=== PATIENT | female | born 1955 | race Caucasian/White ===

== ENCOUNTER → 2022-12-17 | Outpatient (CLI) | payer MEDICARE, SELFPAY | END | disposition home or self-care (01) | PROVIDERS: PCP Family Medicine; Referring Provider Family Medicine; Visit Provider Family Medicine | DX: N39.0 Urinary tract infection, site not specified (principal) | CPT/HCPCS: 87086 ==

== ENCOUNTER → 2022-12-18 | Outpatient (CLI) | payer MEDICARE, SELFPAY ==
[2022-12-18 10:22] LABS: Bacteria 0 SEEN /hpf (None Seen); Red Blood Cells-Urine 0 SEEN /hpf (0-5); White Blood Cells 0 SEEN /hpf (0-5)
[2022-12-18 10:50] LABS: Color, Urine Yellow (Yellow); Glucose, Dipstick Normal (Normal); Ketone-Dipstick Negative (Negative); Leukocyte Esterase-Dipstick Negative /ul (Negative); Nitrite-Dipstick Negative (Negative); Occult Blood-Urine 10 /ul (Negative); Protein-Dipstick Negative (Negative); Specific Gravity, Urine 1.015 (1.002-1.030); Urine Bilirubin Dipstick Negative (Negative); Urine Clarity Clear (Clear); Urine Urobilinogen Normal (Normal)
[2022-12-18 11:37] LABS: Mucous, Urine 2+ /hpf (<or=2+); Squamous Epithelial Cells - UA 0-5 SEEN /hpf (5-10)
== END | disposition home or self-care (01) ==
PROVIDERS: PCP Family Medicine; Referring Provider Family Medicine; Visit Provider Family Medicine
DX: R30.0 Dysuria (principal)
CPT/HCPCS: 81001; 87086

== ENCOUNTER → 2023-02-13 | Outpatient (CLI) | payer MEDICARE, SELFPAY ==
[2023-02-13 12:48] LABS: ALB/GLOB Ratio 1.1 RATIO (0.9-2.4); AST(SGOT) 19 U/L (15-37); Alanine Aminotransfer ALT/SGPT 24 U/L (13-56); Albumin, Serum 4.2 g/dL (3.2-5.0); Alkaline Phosphatase 74 U/L (45-117); Anion Gap 4 (5-15); BUN 20 mg/dL (7-18); BUN/Creat Ratio 21.7 RATIO (10-20); Calcium,Total 9.6 mg/dL (8.5-10.1); Chloride 106 mmol/L (98-107); Creatinine, Serum 0.92 mg/dL (0.55-1.02); EST Glomerular Filtration Rate 65 mL/min (>60); Est Glom Filt Rate - Afr Amer 79 mL/min (>60); Globulin 3.7 g/dL (2.2-4.2); Glucose 93 mg/dL (74-106); Protein, Total 7.9 g/dL (6.4-8.2); Sodium Level 139 mmol/L (136-145)
== END | disposition home or self-care (01) ==
LOC: MTLAB 09:23
PROVIDERS: PCP Family Medicine; Referring Provider Nurse Practitioner Family; Visit Provider Nurse Practitioner Family
DX: Z13.1 Encounter for screening for diabetes mellitus (principal)
CPT/HCPCS: 36415; 80053

== ENCOUNTER → 2023-09-29 | Outpatient (CLI) | payer MEDICARE, SELFPAY ==
--- NOTE | 2023-09-29 15:52 | BI_ITS ---
MAMMOGRAPHY - BILATERAL SCREENING REASON FOR EXAM: Female, 68 years old. Routine annual screening examination. PERTINENT HISTORY: Non-contributory. Remote left stereotactic breast biopsy. TECHNIQUE: Digital bilateral breast alisson (3D mammographic acquisition) in the CC and MLO projections. 2-D mediolateral oblique (MLO) and craniocaudad (CC) views of both breasts were obtained. CAD: Full Field Digital Mammography with Computer Added Detection was performed. COMPARISON: Comparison is made with prior study dated September 21, 2015 and September 04, 2010. FINDINGS: Breast Composition: There are scattered areas of fibroglandular density. There are no dominant masses or suspicious calcifications. A tissue clip marker is seen in the upper deep central portion of the left breast. This is unchanged. No other significant abnormalities are identified. There has been no significant change since the prior study. BI/SCRN MAMM (CAD)W/ALISSON BILAT IMPRESSION: Stable bilateral screening mammogram. Yearly follow-up mammogram recommended. (A) ASSESSMENT CATEGORY: BIRADS Category 2: Benign. A letter regarding these results will be sent to the patient by the facility within 30 days. Approximately 10% of breast cancers are not detected by mammography. A normal mammogram should not delay biopsy of a clinically suspicious abnormality. [id number] Electronically Signed: Alexandru Elliott MD at 8:48 EDT ,
--- NOTE | 2023-09-29 15:54 | BD_ITS ---
STUDY: DUAL ENERGY X-RAY ABSORPTIOMETRY / DXA REASON FOR EXAM: Female, 68 years old. M810 TECHNIQUE: Bone Mineral Density (BMD) measurements of lumbar spine and bilateral hips were obtained. COMPARISON: Comparison is made with prior study January 21, 2017. FINDINGS: Lumbar Spine (L1-L4): g/cm2 (0.778) / T-score (-2.4) / Z-score (-0.6) Findings are suggestive of osteopenia with a high fracture risk. Left Femur Total: g/cm2 (0.658) / T-score (-2.3) / Z-score (-1.0) Left Femoral Neck: g/cm2 (0.639) / T-score (-1.9) / Z-score (-0.3) Right Femur Total: g/cm2 (0.744) / T-score (-1.6) / Z-score (-0.3) Right Femoral Neck: g/cm2 (0.657) / T-score (-1.7) / Z-score (-0.1) The T-Scores on the most recent prior examination were: Lumbar Spine (L1-L4): There has been improvement of bone density since the previous examination. Left Femur Total: which represents a worsening of 4.7%. Right Femur Total: which represents an improvement of 3.7%. BD/Dexa Bone Density Study IMPRESSION: The patient is considered osteopenic as outlined below according to World Derrek Organization (WHO) criteria with a high fracture risk. There has been improvement of bone density since the previous examination. Reference Information: The T-score is the number of standard deviations above or below the standard which is normal for young adults at their peak bone mineral density. The World Health Organization (WHO) interprets the T-scores as follows: Above -1 Normal bone density Between -1 and -2.5 Osteopenia Equal to / or below -2.5 Osteoporosis As a practical clinical guideline, osteopenia may be graded as follows: Mild -1 through -1.5 Moderate -1.6 through -2.0 Severe -2.1 through -2.4 The Z-score is the number of standard deviations above or below age-matched controls. A Z-score of less than -1.5 would be considered abnormal. References: 1. NIH Osteoporosis and Related Bone Diseases www osteo.org 2. International Society for Clinical Densitometry www iscd.org 3. National Osteoporosis Foundation www nof.org Electronically Signed: Alexandru Elliott MD at 9:13 EDT ,
== END | disposition home or self-care (01) ==
LOC: OPBD 15:50
PROVIDERS: PCP Family Medicine; Referring Provider Nurse Practitioner Family; Visit Provider Nurse Practitioner Family
DX: Z12.31 Encounter for screening mammogram for malignant neoplasm of breast (principal); M81.0 Age-related osteoporosis without current pathological fracture
CPT/HCPCS: 77063; 77067; 77080

== ENCOUNTER → 2024-07-01 | Outpatient (CLI) | payer MEDICARE, SELFPAY ==
[2024-07-01 10:38] LABS: Absolute Neutrophil Count 2.6 X10^3/uL (2.0-7.7); Basophil# 0.08 X10^3/uL; Basophil% 1.7 % (0-1); Eosinophil# 0.11 X10^3/uL; Eosinophils% 2.3 % (0-5); Hematocrit 42.4 % (37-47); Hemoglobin 13.9 g/dL (12.0-15.0); Mean Corp Hgb Conc 32.8 g/dL (32-36); Mean Corpuscular Hgb 29.8 pg (27.0-32.0); Mean Corpuscular Volume 90.8 fL (81-99); Monocyte# 0.36 X10^3/uL; Monocyte% 7.6 % (0-10); NRBC Flagged by Analyzer 0 % (0-5); Neutrophil # 2.55 X10^3/uL (2.7-7.7); Neutrophil % 54.2 % (47-70); Platelet Count 319 K/mm3 (150-450); RBC Distribution Width CV 12.8 % (11.6-14.6); RBC Distribution Width SD 41.8 fl (35.1-43.9); Red Blood Count 4.67 M/mm3 (4.2-5.4); White Blood Count 4.7 K/mm3 (4.4-11.0)
[2024-07-01 10:46] LABS: Vitamin B12 917 pg/mL (211-911); Vitamin D,25 Hydroxy 60.7 ng/mL
[2024-07-01 10:58] LABS: AST(SGOT) 22 U/L (15-37); Alanine Aminotransfer ALT/SGPT 19 U/L (13-56); Alkaline Phosphatase 80 U/L (45-117); Anion Gap 8 (5-15); BUN 26 mg/dL (7-18); BUN/Creat Ratio 27.5 RATIO (10-20); CRP < 2.90 mg/L (0.0-3.0); Calcium,Total 9.5 mg/dL (8.5-10.1); Chloride 102 mmol/L (98-107); Cholesterol 216 mg/dL (200); Creatinine, Serum 0.94 mg/dL (0.55-1.02); EST Glomerular Filtration Rate 63 mL/min (>60); Est Glom Filt Rate - Afr Amer 76 mL/min (>60); Globulin 4.1 g/dL (2.2-4.2); Glucose 85 mg/dL (74-106); High Density Lipoprotein 57 mg/dL; Potassium 4.2 mmol/L (3.5-5.1); Protein, Total 8.1 g/dL (6.4-8.2); Sodium Level 135 mmol/L (136-145); Triglycerides 73 mg/dL; Very Low Density Lipoprotein 15 mg/dL (5-40)
[2024-07-01 16:02] LABS: Syphilis Antibodies Non-reactive
[2024-07-01 16:04] LABS: Erythrocyte Sedimentation Rate 10 mm/hr (0-30)
[2024-07-04 14:09] LABS: ANTINUCLEAR ANTIBODIES DIRECT Negative (Negative)
[2024-07-04 15:08] LABS: Absolute CD4 Helper 674 /uL (359-1519); Basophils (Absolute) 0.1 x10E3/uL (0.0-0.2); CD4/CD8 Ratio 1.33 (0.92-3.72); Complement C3 140 mg/dL (82-167); Eosinophils 2 % (Not Estab.); Eosinophils (Absolute) 0.1 x10E3/uL (0.0-0.4); Hematocrit 43.4 % (34.0-46.6); Hemoglobin 14.4 g/dL (11.1-15.9); Immature Granulocytes 0 % (Not Estab.); Immature Granulocytes Absolute 0 x10E3/uL (0.0-0.1); Lyme Scn Total Ab w/Rflx Negative (Negative); Lymphs 32 % (Not Estab.); Lymphs (Absolute) 1.5 x10E3/uL (0.7-3.1); MCH 30.6 pg (26.6-33.0); MCHC 33.2 g/dL (31.5-35.7); MCV 92 fL (79-97); Monocytes 8 % (Not Estab.); Monocytes (Absolute) 0.4 x10E3/uL (0.1-0.9); Neutrophils 56 % (Not Estab.); Neutrophils (Absolute) 2.6 x10E3/uL (1.4-7.0); PROEL- A/G Ratio 1.2 (0.7-1.7); PROEL- Alpha-1 Globulin 0.2 g/dL (0.0-0.4); PROEL- Alpha-2 Globulin 0.6 g/dL (0.4-1.0); PROEL- Beta Globulin 1.1 g/dL (0.7-1.3); PROEL- Gamma Globulin 1.3 g/dL (0.4-1.8); PROEL- Globulin, Total 3.3 g/dL (2.2-3.9); PROEL- TOTAL PROTEIN 7.3 g/dL (6.0-8.5); PROEL-M-Spike Not Observed g/dL (Not Observed); Percent % CD4 Pos. Lymph. 44.9 % (30.8-58.5); Percent % CD8 Pos. Lymph. 33.7 % (12.0-35.5); Platelets 334 x10E3/uL (150-450); RBC Count 4.71 x10E6/uL (3.77-5.28); RDW 12.7 % (11.7-15.4); WBC Count 4.7 x10E3/uL (3.4-10.8)
== END | disposition home or self-care (01) ==
LOC: MTLAB 08:13
PROVIDERS: PCP Family Medicine; Referring Provider Family Medicine; Visit Provider Family Medicine
DX: Z01.84 Encounter for antibody response examination (principal); K12.30 Oral mucositis (ulcerative), unspecified; M81.0 Age-related osteoporosis without current pathological fracture; Z13.220 Encounter for screening for lipoid disorders
CPT/HCPCS: 36415; 80053; 80061; 82306; 82607; 82746; 84165; 85025; 85652; 86038; 86140; 86160; 86360; 86618; 86780

== ENCOUNTER → 2024-07-22 | Outpatient (CLI) | payer MEDICARE, SELFPAY | END | disposition home or self-care (01) | LOC: MTLAB 08:08 | PROVIDERS: PCP Family Medicine; Referring Provider Family Medicine; Visit Provider Family Medicine | DX: R21 Rash and other nonspecific skin eruption (principal) ==

== ENCOUNTER 2024-08-04 09:39 | Outpatient (RCR) | payer MEDICARE, SELFPAY ==
--- NOTE | 2024-08-04 12:04 | HP.PTEVAL ---
Patient's Visit Information Visit Information Visit Information: CATHY SAENZ is a 69 year old F referred to Physical Therapy by Dr. Elmo Solis MD with a diagnosis of Osteoporosis. Date of Evaluation: 08/04/24 Physical Therapist: Dylan Bates DPT Visit Plan Frequency: 1x/Week Duration: 1 Week Plan: Pt educated on HEP for end range mobility and core stability to allow for safe practice into back bending. She is to work on these activities. I did educate her on the potential risks with her osteoporosis, pt. desires to continue. Subjective Subjective: Pt is here for the initial evaluation with a dx of osteoporosis. Pt reports no pain and was dx with osteoporosis in 2011 when she came in for a wrist fracture. Pt reports no limitations with ADLs or daily activities. Pt reports exercising 2x/day focusing more on flexibility. Pt reports stiffness in shoulders and wrists when performing a backbend and feels tightness when trying to do so. Pt is more concerned with shoulder tightness and mobility. Objective Objective: Posture: normal Palpation: normal Neuro: DTR normal; sensation normal ROM: spine normal; shoulders normal; wrists normal MMT: UE normal bilaterally; all LE normal except hip ext 4/5 bilaterally; lower abdominals fair plus; upper abdominals 5/5 GAIT: normal without issues. Balance/Special Test Scores Oswestry Low Back Score: 0 Goals Goal 1:: Pt will be independent with HEP to increase core strength and end range mobility (goal met today). Goal Time Frame: 1 Week Rehabilitation Potential Physical Therapy Diagnosis: Pt. has signs and symptoms consistent with osteoporosis. Pt. has recently started working on being able to complete a back bend with her grand daughter. Pt. has some end range mobility issues and would like to get better with in these ranges. Rehabilitation Potential: Excellent Anticipated Interventions Patient/Client Instruction: Educate patient on: Benefits of Fitness Program For the Purpose of:: To foster healthy habits and To improve self management Therapeutic Exercise to Include: Strength training, Passive ROM and Active ROM For the Purpose of:: To increase ROM, To improve muscle performance and motor function and To increase flexibility/ROM Text: Thank you for the opportunity to evaluate your patient. For Medicare and Medicare HMO plans, please review the plan of care and approve it. It will need to be FAXED BACK to us at [phone] for Medicare purposes. For Medicare only, by signing this I certify the plan of care. Please let me know if there are questions or concerns regarding this plan of care. Physician Signature: Date:
== END 2024-08-04 19:00 | disposition home or self-care (01) ==
LOC: PT 09:39
PROVIDERS: PCP Family Medicine; Referring Provider Family Medicine; Visit Provider Family Medicine
DX: M81.0 Age-related osteoporosis without current pathological fracture (principal)
CPT/HCPCS: 97110; 97161

== ENCOUNTER → 2025-07-26 | Outpatient (CLI) | payer MEDICARE, SELFPAY ==
--- OUTSIDE RECORDS SUMMARY | 2025-07-26 07:18 | XMS RPT_ITS | CCD ---
Author Organization [facility] Care Team Providers Care Vp Training Name Role Phone Elmo Solis Primary Care Unavailable Elmo Solis Attending Unavailable Elmo Solis Referring Unavailable Elmo Solis Primary Care Unavailable Elmo Solis Attending Unavailable Elmo Solis Referring Unavailable Elmo Solis Attending Unavailable Elmo Solis Referring Unavailable Elmo Solis Primary Care Unavailable Medications Current Medications Medication Drug Class(es) Dates Sig (Normalized) Sig (Original) acetaminophen 325 mg / HYDROcodone bitartrate 5 mg oral tablet (3 sources) Opioid Agonist Start: 01-11-2017 take 1 tablet by mouth every four hours as needed Hydrocodone-Aceta minophen Active 1 - 2 TABLET PO EVERY 4 HOURS NEEDED January 11, 2017 1:00am Problems Problem Classification Problem Date Documented Da te Episodic/Chronic Diseases of mouth; excluding dental (1 source) Oral mucositis (ulcerative), unspecified; Translations: [Oral mucositis (ulcerative), unspecified] Onset: 08-07-2024 Episodic Other skin disorders (1 source) Rash and other nonspecific skin eruption; Translations: [Rash and other nonspecific skin eruption] Onset: 08-09-2024 Episodic Results Test Name Value Interpretation Reference Range Facility Inital Evaluation (1) - PTon 08-04-2024 Inital Evaluation (1) - PT [facility] [address] [place] [address] / REHABILITATION SERVICES INITIAL EVALUATION MR#: [id number] Acct: [id number] Name: CATHY SAENZ Rep #: [id number] : 1955 69 From: Dylan Bates DPT Referring Dr.: Dr. Elmo Solis MD Status: REG R CR Insurance: [employer] [facility] ADV LIFE1 SELF PAY INSURANCE Patient's Visit Information Visit Information Visit Information: CATHY SAENZ is a 69 year old F referred to Physical Therapy by Dr. Elmo Solis MD with a diagnosis of Osteoporosis. Date of Evaluation: 08/04/24 Physical Therapist: Dylan Bates DPT Visit Plan Frequency: 1x/Week Duration: 1 Week Plan: Pt educated on HEP for end range mobility and core stability to allow for safe practice into back bending. She is to work on these activities. I did educate her on the potential risks with her osteoporosis, pt. desires to continue. Subjective Subjective: Pt is here for the initial evaluation with a dx of osteoporosis. Pt reports no pain and was dx with osteoporosis in 2011 when she came in for a wrist fracture. Pt reports no limitations wi th ADLs or daily activities. Pt reports exercising 2x/day focusing more on flexibility. Pt reports stiffness in shoulders and wrists when performing a backbend and feels tightness when trying to do so. Pt is more concerned with shoulder tightness and mobility. Objective Objective: Posture: normal Palpation: normal Neuro: DTR normal; sensation normal ROM: spine normal; shoulders normal; wrists normal MMT: UE normal bilaterally; all LE normal except hip ext 4/5 bilaterally; lower abdominals fair plus; upper abdominals 5/5 GAIT: normal without issues. Balance/Special Test Scores Oswestry Low Back Score: 0 Goals Goal 1:: Pt will be independent with HEP to increase core strength and end range mobility (goal met today). Goal Time Frame: 1 Week Rehabilitation Potential Physical Therapy Diagnosis: Pt. has signs and symptoms consistent with osteoporosis. Pt. has recently started working on being able to complete a back bend with her grand daughter. Pt. has some end range mobility issues and would like to get better with in these ranges. Rehabilitation Potential: Excellent Anticipated Interventions Patient/Client Instruction: Educate patient on: Benefits of Fitness Program For the Purpose of:: To foster healthy habits and To improve self management Therapeutic Exercise to Include: Strength training, Passive ROM and Active ROM For the Purpose of:: To increase ROM, To improve muscle performance and motor function and To increase flexibility/ROM Text: Thank you for the opportunity to evaluate your patient. For Medicare and Medicare HMO plans, please review the plan of care and approve it. It will need to be FAXED BACK to us at [phone] for Medicare purposes. For Medicare only, by signing this I certify the plan of care. Please let me know if there are questions or concerns regarding this plan of care. Physician Signature: __Date: 08/04/24 1204 CC: Dr. Elmo Solis MD CLS Signed [facility] [id number] 07-22-2024 [facility] Comment on above: Result Comment: DIAG NOSIS CODE DIDNT WORK FOR TEST, PT DIDNT WANT TO PAY TO GET DONE Performed By: #### L 5500.0550 #### [facility] [address] [place], [address] CHOCOLATE [facility] Comment on above: Result Comment: DIAG NOSIS CODE DIDNT WORK FOR TEST, PT DIDNT WANT TO PAY TO GET DONE Performed By: #### L 5500.0550 #### [facility] [address] [place], [address] CODFISH [facility] Comment on above: Result Comment: DIAG NOSIS CODE DIDNT WORK FOR TEST, PT DIDNT WANT TO PAY TO GET DONE Performed By: #### L 5500.0550 #### [facility] [address] [place], [address] CORN [facility] Comment on above: Result Comment: DIAG NOSIS CODE DIDNT WORK FOR TEST, PT DIDNT WANT TO PAY TO GET DONE Performed By: #### L 5500.0550 #### [facility] [address] [place], [address] EGG, WHOLE [facility] Comment on above: Result Comment: DIAG NOSIS CODE DIDNT WORK FOR TEST, PT DIDNT WANT TO PAY TO GET DONE Performed By: #### L 5500.0550 #### [facility] [address] [place], [address] MILK (COW) [facility] Comment on above: Result Comment: DIAG NOSIS CODE DIDNT WORK FOR TEST, PT DIDNT WANT TO PAY TO GET DONE Performed By: #### L 5500.0550 #### [facility] [address] [place], [address] MUSSELS [facility] Comment on above: Result Comment: DIAG NOSIS CODE DIDNT WORK FOR TEST, PT DIDNT WANT TO PAY TO GET DONE Performed By: #### L 5500.0550 #### [facility] [address] [place], [address] PEANUT [facility] Comment on above: Result Comment: DIAG NOSIS CODE DIDNT WORK FOR TEST, PT DIDNT WANT TO PAY TO GET DONE Performed By: #### L 5500.0550 #### [facility] [address] [place], [address] PORK [facility] Comment on above: Result Comment: DIAG NOSIS CODE DIDNT WORK FOR TEST, PT DIDNT WANT TO PAY TO GET DONE Performed By: #### L 5500.0550 #### [facility] [address] [place], [address] SALMON [facility] Comment on above: Result Comment: DIAG NOSIS CODE DIDNT WORK FOR TEST, PT DIDNT WANT TO PAY TO GET DONE Performed By: #### L 5500.0550 #### [facility] [address] [place], [address] [facility] Comment on above: Result Comment: DIAG NOSIS CODE DIDNT WORK FOR TEST, PT DIDNT WANT TO PAY TO GET DONE Performed By: #### L 5500.0550 #### [facility] [address] [place], [address] SOYBEAN [facility] Comment on above: Result Comment: DIAG NOSIS CODE DIDNT WORK FOR TEST, PT DIDNT WANT TO PAY TO GET DONE Performed By: #### L 5500.0550 #### [facility] [address] [place], [address] TUNA [facility] Comment on above: Result Comment: DIAG NOSIS CODE DIDNT WORK FOR TEST, PT DIDNT WANT TO PAY TO GET DONE Performed By: #### L 5500.0550 #### [facility] [address] [place], [address] WHEAT [facility] Comment on above: Result Comment: DIAG NOSIS CODE DIDNT WORK FOR TEST, PT DIDNT WANT TO PAY TO GET DONE Performed By: #### L 5500.0550 #### [facility] [address] [place], [address] ANTINUCLEAR ANTIBODIES DIREC Ton 07-04-2024 TINY,DIRECT Negative Normal Negative [facility] Comment on above: Order Comment: Order Date: 06/29/24 Order Info: 0270-1 - TINY Comments: by IFA titer Result Comment: Perf ormed at: [facility] [id number] Cushion Sewer: Jacob Jonas PhD, Phone: [phone] Performed By: #### L 3100.5475, L3100.3450, L3100.5700, L3100.5800, L3890.0100, L100.0100, L503.0105, L501.6710, L506.0250 #### [facility] [address] [place], [address] CD4:CD8 Ratioon 07-04-2024 % CD4 POS.LYMPH 44.9 Normal 30.8-58.5 [facility] Comment on above: Order Comment: Order Date: 06/29/24 Order Info: 0060-1 - PROEL Order Info: 4485-9 - COMPC3 Order Info: 4498-2 - COMPC4 Order Info: 35050-8 - CD4CD8 Order Date: 06/30/24 Order Info: 9586-9 - LYMS Performed By: #### L 3100.5475, L3100.3450, L3100.5700, L3100.5800, L3890.0100, L100.0100, L503.0105, L501.6710, L506.0250 #### [facility] [address] [place], [address] % CD8 POS.LYMPH 33.7 Normal 12.0-35.5 [facility] Comment on above: Order Comment: Order Date: 06/29/24 Order Info: 0060-1 - PROEL Order Info: 4485-9 - COMPC3 Order Info: 4498-2 - COMPC4 Order Info: 79760-5 - CD4CD8 Order Date: 06/30/24 Order Info: 9586-9 - LYMS Performed By: #### L 3100.5475, L3100.3450, L3100.5700, L3100.5800, L3890.0100, L100.0100, L503.0105, L501.6710, L506.0250 #### [facility] [address] [place], [address] ABSOLUTE CD4 674 /uL Normal 359-1519 [facility] Comment on above: Order Comment: Order Date: 06/29/24 Order Info: 0060-1 - PROEL Order Info: 4485-9 - COMPC3 Order Info: 4498-2 - COMPC4 Order Info: 09642-7 - CD4CD8 Order Date: 06/30/24 Order Info: 9586-9 - LYMS Performed By: #### L 3100.5475, L3100.3450, L3100.5700, L3100.5800, L3890.0100, L100.0100, L503.0105, L501.6710, L506.0250 #### [facility] [address] [place], [place], [address] ABSOLUTE CD8 506 /uL Normal 109-897 [facility] Comment on above: Order Comment: Order Date: 06/29/24 Order Info: 0- - PROEL Order Info: 4485-9 - COMPC3 Order Info: 4498-2 - COMPC4 Order Info: 72208-0 - CD4CD8 Order Date: 06/30/24 Order Info: 9586-9 - LYMS Performed By: #### L 3100.5475, L3100.3450, L3100.5700, L3100.5800, L3890.0100, L100.0100, L503.0105, L501.6710, L506.0250 #### [facility] [address] [place], [place], [address] Basophils 2 Normal Not Estab. [facility] Comment on above: Order Comment: Order Date: 06/29/24 Order Info: 59-11 - PROEL Order Info: 44804-07 - COMPC3 Order Info: 4498- - COMPC4 Order Info: 43546-4 - CD4CD8 Order Date: 06/30/24 Order Info: 9586-9 - LYMS Performed By: #### L 3100.5475, L3100.3450, L3100.5700, L3100.5800, L3890.0100, L100.0100, L503.0105, L501.6710, L506.0250 #### [facility] [address] [place], [place], [address] Basos Absolute 0.1 x10E3/uL Normal 0.0-0.2 [facility] Comment on above: Order Comment: Order Date: 06/29/24 Order Info: 0 - PROEL Order Info: 448- - COMPC3 Order Info: 4498- - COMPC4 Order Info: 09485-4 - CD4CD8 Order Date: 06/30/24 Order Info: 9586-9 - LYMS Performed By: #### L 3100.5475, L3100.3450, L3100.5700, L3100.5800, L3890.0100, L100.0100, L503.0105, L501.6710, L506.0250 #### [facility] [address] [place], [address] CD4/CD8 RATIO 1.33 Normal 0.92-3.72 [facility] Comment on above: Order Comment: Order Date: 06/29/24 Order Info: 59- - PROEL Order Info: 4489 - COMPC3 Order Info: 4498- - COMPC4 Order Info: 99951-1 - CD4CD8 Order Date: 06/30/24 Order Info: 9586-9 - LYMS Performed By: #### L 3100.5475, L3100.3450, L3100.5700, L3100.5800, L3890.0100, L100.0100, L503.0105, L501.6710, L506.0250 #### [facility] [address] [place], [address] Eos Absolute 0.1 x10E3/uL Normal 0.0-0.4 [facility] Comment on above: Order Comment: Order Date: 06/29/24 Order Info: 59-11 - PROEL Order Info: 4489 - COMPC3 Order Info: 44907-01 - COMPC4 Order Info: 43438-1 - CD4CD8 Order Date: 06/30/24 Order Info: 9586-9 - LYMS Performed By: #### L 3100.5475, L3100.3450, L3100.5700, L3100.5800, L3890.0100, L100.0100, L503.0105, L501.6710, L506.0250 #### [facility] [address] [place], [address] Eosinophils 2 Normal Not Estab. [facility] Comment on above: Order Comment: Order Date: 06/29/24 Order Info: 59-11 - PROEL Order Info: 4485-9 - COMPC3 Order Info: 4498- - COMPC4 Order Info: 64613-9 - CD4CD8 Order Date: 06/30/24 Order Info: 9586-9 - LYMS Performed By: #### L 3100.5475, L3100.3450, L3100.5700, L3100.5800, L3890.0100, L100.0100, L503.0105, L501.6710, L506.0250 #### [facility] [address] [place], [place], [address] Erythrocyte distribution width (RBC) [Ratio] 12.7 % Normal 11.7-15.4 [facility] Comment on above: Order Comment: Order Date: 06/29/24 Order Info: 0060-1 - PROEL Order Info: 4485-9 - COMPC3 Order Info: 4498-2 - COMPC4 Order Info: 59568-4 - CD4CD8 Order Date: 06/30/24 Order Info: 9586-9 - LYMS Performed By: #### L 3100.5475, L3100.3450, L3100.5700, L3100.5800, L3890.0100, L100.0100, L503.0105, L501.6710, L506.0250 #### [facility] [address] [place], [place], [address] Hematocrit (Bld) [Volume fraction] 43.4 % Normal 34.0-46.6 [facility] Comment on above: Order Comment: Order Date: 06/29/24 Order Info: 0060-1 - PROEL Order Info: 4485-9 - COMPC3 Order Info: 4498-2 - COMPC4 Order Info: 28162-4 - CD4CD8 Order Date: 06/30/24 Order Info: 9586-9 - LYMS Performed By: #### L 3100.5475, L3100.3450, L3100.5700, L3100.5800, L3890.0100, L100.0100, L503.0105, L501.6710, L506.0250 #### [facility] [address] [place], [place], [address] Heme Comment TNP Normal . [facility] Comment on above: Order Comment: Order Date: 06/29/24 Order Info: 59- - PROEL Order Info: 4485-9 - COMPC3 Order Info: 4498- - COMPC4 Order Info: 74673-1 - CD4CD8 Order Date: 06/30/24 Order Info: 9586-9 - LYMS Performed By: #### L 3100.5475, L3100.3450, L3100.5700, L3100.5800, L3890.0100, L100.0100, L503.0105, L501.6710, L506.0250 #### [facility] [address] [place], [place], [address] Hemoglobin (Bld) [Mass/Vol] 14.4 g/dL Normal 11.1-15.9 [facility] Comment on above: Order Comment: Order Date: 06/29/24 Order Info: 59-11 - PROEL Order Info: 4489 - COMPC3 Order Info: 4498 - COMPC4 Order Info: 93602-3 - CD4CD8 Order Date: 06/30/24 Order Info: 9586-9 - LYMS Performed By: #### L 3100.5475, L3100.3450, L3100.5700, L3100.5800, L3890.0100, L100.0100, L503.0105, L501.6710, L506.0250 #### [facility] [address] [place], [place], [address] Imm Grans Abs 0 x10E3/uL Normal 0.0-0.1 [facility] Comment on above: Order Comment: Order Date: 06/29/24 Order Info: 59-11 - PROEL Order Info: 4485-9 - COMPC3 Order Info: 4498- - COMPC4 Order Info: 18588-7 - CD4CD8 Order Date: 06/30/24 Order Info: 9586-9 - LYMS Performed By: #### L 3100.5475, L3100.3450, L3100.5700, L3100.5800, L3890.0100, L100.0100, L503.0105, L501.6710, L506.0250 #### [facility] [address] [place], [place], [address] [phone] Immature Cells TNP Normal . [facility] Comment on above: Order Comment: Order Date: 06/29/24 Order Info: 0- - PROEL Order Info: 4489 - COMPC3 Order Info: 4498 - COMPC4 Order Info: 23420-4 - CD4CD8 Order Date: 06/30/24 Order Info: 9586-9 - LYMS Performed By: #### L 3100.5475, L3100.3450, L3100.5700, L3100.5800, L3890.0100, L100.0100, L503.0105, L501.6710, L506.0250 #### [facility] [address] [place], [place], [phone] Immature Grans 0 Normal Not Estab. [facility] Comment on above: Order Comment: Order Date: 06/29/24 Order Info: 59-11 - PROEL Order Info: 4489 - COMPC3 Order Info: 4498- - COMPC4 Order Info: 52589-0 - CD4CD8 Order Date: 06/30/24 Order Info: 9586-9 - LYMS Performed By: #### L 3100.5475, L3100.3450, L3100.5700, L3100.5800, L3890.0100, L100.0100, L503.0105, L501.6710, L506.0250 #### [facility] [address] [place], [place], [address] Lymphocytes 32 Normal Not Estab. [facility] Comment on above: Order Comment: Order Date: 06/29/24 Order Info: 0-1 - PROEL Order Info: 4485-9 - COMPC3 Order Info: 4498-2 - COMPC4 Order Info: 30937-9 - CD4CD8 Order Date: 06/30/24 Order Info: 9586-9 - LYMS Performed By: #### L 3100.5475, L3100.3450, L3100.5700, L3100.5800, L3890.0100, L100.0100, L503.0105, L501.6710, L506.0250 #### [facility] [address] [place], [place], [address] (657) Lymphocytes (Bld) [#/Vol] 1.5 10*3/uL Normal 0.7-3.1 [facility] Comment on above: Order Comment: Order Date: 06/29/24 Order Info: 0060-1 - PROEL Order Info: 4485-9 - COMPC3 Order Info: 4498-2 - COMPC4 Order Info: 94496-5 - CD4CD8 Order Date: 06/30/24 Order Info: 9586-9 - LYMS Performed By: #### L 3100.5475, L3100.3450, L3100.5700, L3100.5800, L3890.0100, L100.0100, L503.0105, L501.6710, L506.0250 #### [facility] [address] [place], [place], [address] MCH (RBC) [Entitic mass] 30.6 pg Normal 26.6-33.0 [facility] Comment on above: Order Comment: Order Date: 06/29/24 Order Info: 0060- - PROEL Order Info: 4485-9 - COMPC3 Order Info: 4498-2 - COMPC4 Order Info: 11725-7 - CD4CD8 Order Date: 06/30/24 Order Info: 9586-9 - LYMS Performed By: #### L 3100.5475, L3100.3450, L3100.5700, L3100.5800, L3890.0100, L100.0100, L503.0105, L501.6710, L506.0250 #### [facility] [address] [place], [place], [address] MCHC (RBC) [Mass/Vol] 33.2 g/dL Normal 31.5-35.7 [facility] Comment on above: Order Comment: Order Date: 06/29/24 Order Info: 0- - PROEL Order Info: 4485-9 - COMPC3 Order Info: 4498-2 - COMPC4 Order Info: 70457-9 - CD4CD8 Order Date: 06/30/24 Order Info: 9586-9 - LYMS Performed By: #### L 3100.5475, L3100.3450, L3100.5700, L3100.5800, L3890.0100, L100.0100, L503.0105, L501.6710, L506.0250 #### [facility] [address] [place], [place], [address] MCV (RBC) [Entitic vol] 92 fL Normal 79-97 [facility] Comment on above: Order Comment: Order Date: 06/29/24 Order Info: 59-11 - PROEL Order Info: 4489 - COMPC3 Order Info: 4498- - COMPC4 Order Info: 94766-3 - CD4CD8 Order Date: 06/30/24 Order Info: 9586-9 - LYMS Performed By: #### L 3100.5475, L3100.3450, L3100.5700, L3100.5800, L3890.0100, L100.0100, L503.0105, L501.6710, L506.0250 #### [facility] [address] [place], [place], [address] Monocytes 8 Normal Not Estab. [facility] Comment on above: Order Comment: Order Date: 06/29/24 Order Info: 59- - PROEL Order Info: 4485-9 - COMPC3 Order Info: 4498-2 - COMPC4 Order Info: 45380-6 - CD4CD8 Order Date: 06/30/24 Order Info: 9586-9 - LYMS Performed By: #### L 3100.5475, L3100.3450, L3100.5700, L3100.5800, L3890.0100, L100.0100, L503.0105, L501.6710, L506.0250 #### [facility] [address] [place], [place], [address] Monos Absolute 0.4 x10E3/uL Normal 0.1-0.9 [facility] Comment on above: Order Comment: Order Date: 06/29/24 Order Info: 59- - PROEL Order Info: 4485-9 - COMPC3 Order Info: 4498- - COMPC4 Order Info: 01620-2 - CD4CD8 Order Date: 06/30/24 Order Info: 9586-9 - LYMS Performed By: #### L 3100.5475, L3100.3450, L3100.5700, L3100.5800, L3890.0100, L100.0100, L503.0105, L501.6710, L506.0250 #### [facility] [address] [place], [place], [address] Neutro Absolute 2.6 x10E3/uL Normal 1.4-7.0 [facility] Comment on above: Order Comment: Order Date: 06/29/24 Order Info: 59-11 - PROEL Order Info: 4485-9 - COMPC3 Order Info: 449- - COMPC4 Order Info: 45118-9 - CD4CD8 Order Date: 06/30/24 Order Info: 9586-9 - LYMS Performed By: #### L 3100.5475, L3100.3450, L3100.5700, L3100.5800, L3890.0100, L100.0100, L503.0105, L501.6710, L506.0250 #### [facility] [address] [place], [place], [address] Neutrophils 56 Normal Not Estab. [facility] Comment on above: Order Comment: Order Date: 06/29/24 Order Info: 1 - PROEL Order Info: 4485-9 - COMPC3 Order Info: 4498-2 - COMPC4 Order Info: 48081-5 - CD4CD8 Order Date: 06/30/24 Order Info: 9586-9 - LYMS Performed By: #### L 3100.5475, L3100.3450, L3100.5700, L3100.5800, L3890.0100, L100.0100, L503.0105, L501.6710, L506.0250 #### [facility] [address] [place], [address] Platelets (Bld) [#/Vol] 334 10*3/uL Normal 150-450 [facility] Comment on above: Order Comment: Order Date: 06/29/24 Order Info: 0060-1 - PROEL Order Info: 4485-9 - COMPC3 Order Info: 4498-2 - COMPC4 Order Info: 11503-2 - CD4CD8 Order Date: 06/30/24 Order Info: 9586-9 - LYMS Performed By: #### L 3100.5475, L3100.3450, L3100.5700, L3100.5800, L3890.0100, L100.0100, L503.0105, L501.6710, L506.0250 #### [facility] [address] [place], [address] RBC (Bld) [#/Vol] 4.71 10*6/uL Normal 3.77-5.28 [facility] Comment on above: Order Comment: Order Date: 06/29/24 Order Info: 0060-1 - PROEL Order Info: 4485-9 - COMPC3 Order Info: 4498-2 - COMPC4 Order Info: 76536-4 - CD4CD8 Order Date: 06/30/24 Order Info: 9586-9 - LYMS Performed By: #### L 3100.5475, L3100.3450, L3100.5700, L3100.5800, L3890.0100, L100.0100, L503.0105, L501.6710, L506.0250 #### [facility] [address] [place], [place], [address] WBC (Bld) [#/Vol] 4.7 10*3/uL Normal 3.4-10.8 [facility] Comment on above: Order Comment: Order Date: 06/29/24 Order Info: 0060-1 - PROEL Order Info: 4485-9 - COMPC3 Order Info: 4498-2 - COMPC4 Order Info: 58509-7 - CD4CD8 Order Date: 06/30/24 Order Info: 9586-9 - LYMS Performed By: #### L 3100.5475, L3100.3450, L3100.5700, L3100.5800, L3890.0100, L100.0100, L503.0105, L501.6710, L506.0250 #### [facility] [address] [place], [place], [address] Complement C3on 07-04-2024 COMP C3 140 mg/dL Normal 82-167 [facility] Comment on above: Order Comment: Order Date: 06/29/24 Order Info: 59-11 - PROEL Order Info: 4485-9 - COMPC3 Order Info: 4498-2 - COMPC4 Order Info: 78673-1 - CD4CD8 Order Date: 06/30/24 Order Info: 9586-9 - LYMS Performed By: #### L 3100.5475, L3100.3450, L3100.5700, L3100.5800, L3890.0100, L100.0100, L503.0105, L501.6710, L506.0250 #### [facility] [address] [place], [place], [address] Complement C4on 07-04-2024 COMPLEMENT, C4 26 mg/dL Normal 12-38 [facility] Comment on above: Order Comment: Order Date: 06/29/24 Order Info: 0060-1 - PROEL Order Info: 4485-9 - COMPC3 Order Info: 4498-2 - COMPC4 Order Info: 82445-5 - CD4CD8 Order Date: 06/30/24 Order Info: 9586-9 - LYMS Performed By: #### L 3100.5475, L3100.3450, L3100.5700, L3100.5800, L3890.0100, L100.0100, L503.0105, L501.6710, L506.0250 #### [facility] [address] [place], [place], [address] Lyme Screen W/Reflex WBon LYME SCREEN Ab Negative Normal Negative [facility] Comment on above: Order Comment: Order Date: 06/29/24 Order Info: 2132-9 - B12 Order Date: 04/28/24 Order Info: 47288-0 - VITD25 Result Comment: Lyme antibodies not detected. Reflex testing is not indicated. No laboratory evidence of infection with B. burgdorferi (Lyme disease). Negative results may occur in patients recently infected (less than or equal to 14 days) with B. burgdorferi. If recent infection is suspected, repeat testing on a new sample collected in 7 to 14 days is recommended. Performed at: [address] [id number] Cushion Sewer: Jacob Jonas PhD, Phone: [phone] Performed By: #### L 3100.5475, L3100.3450, L3100.5700, L3100.5800, L3890.0100, L100.0100, L503.0105, L501.6710, L506.0250 #### [facility] [address] [place], [place], [address] Protein Electroph, Son 07-04 Albumin [Mass/Vol] 4.0 g/dL Normal 2.9-4.4 [facility] Comment on above: Order Comment: Order Date: 06/29/24 Order Info: 0060-1 - PROEL Order Info: 4485-9 - COMPC3 Order Info: 4498-2 - COMPC4 Order Info: 07008-2 - CD4CD8 Order Date: 06/30/24 Order Info: 9586-9 - LYMS Performed By: #### L 3100.5475, L3100.3450, L3100.5700, L3100.5800, L3890.0100, L100.0100, L503.0105, L501.6710, L506.0250 #### [facility] [address] [place], [address] (681) Albumin/Globulin [Mass ratio] 1.2 {ratio} Normal 0.7-1.7 [facility] Comment on above: Order Comment: Order Date: 06/29/24 Order Info: 0060-1 - PROEL Order Info: 4485-9 - COMPC3 Order Info: 4498-2 - COMPC4 Order Info: 46167-3 - CD4CD8 Order Date: 06/30/24 Order Info: 9586-9 - LYMS Performed By: #### L 3100.5475, L3100.3450, L3100.5700, L3100.5800, L3890.0100, L100.0100, L503.0105, L501.6710, L506.0250 #### [facility] [address] [place], [place], [id number] ALPHA-1 GLOBUL 0.2 g/dL Normal 0.0-0.4 [facility] Comment on above: Order Comment: Order Date: 06/29/24 Order Info: 0-1 - PROEL Order Info: 4485-9 - COMPC3 Order Info: 4498-2 - COMPC4 Order Info: 03399-5 - CD4CD8 Order Date: 06/30/24 Order Info: 9586-9 - LYMS Performed By: #### L 3100.5475, L3100.3450, L3100.5700, L3100.5800, L3890.0100, L100.0100, L503.0105, L501.6710, L506.0250 #### [facility] [address] [facility] [place], [address] (482) ALPHA-2 GLOBUL 0.6 g/dL Normal 0.4-1.0 [facility] Comment on above: Order Comment: Order Date: 06/29/24 Order Info: 0060-1 - PROEL Order Info: 4485-9 - COMPC3 Order Info: 4498-2 - COMPC4 Order Info: 09943-0 - CD4CD8 Order Date: 06/30/24 Order Info: 9586-9 - LYMS Performed By: #### L 3100.5475, L3100.3450, L3100.5700, L3100.5800, L3890.0100, L100.0100, L503.0105, L501.6710, L506.0250 #### [facility] [address] [place], [place], [phone] (510) BETA GLOBULIN 1.1 g/dL Normal 0.7-1.3 [facility] Comment on above: Order Comment: Order Date: 06/29/24 Order Info: 0060-1 - PROEL Order Info: 448-9 - COMPC3 Order Info: 4498- - COMPC4 Order Info: 95883-2 - CD4CD8 Order Date: 06/30/24 Order Info: 9586-9 - LYMS Performed By: #### L 3100.5475, L3100.3450, L3100.5700, L3100.5800, L3890.0100, L100.0100, L503.0105, L501.6710, L506.0250 #### [facility] [address] [facility] [address] [place], [place], [phone] (022) GAMMA GLOBULIN 1.3 g/dL Normal 0.4-1.8 [facility] Comment on above: Order Comment: Order Date: 06/29/24 Order Info: 0060-1 - PROEL Order Info: 4485-9 - COMPC3 Order Info: 4498-2 - COMPC4 Order Info: 75096-1 - CD4CD8 Order Date: 06/30/24 Order Info: 9586-9 - LYMS Performed By: #### L 3100.5475, L3100.3450, L3100.5700, L3100.5800, L3890.0100, L100.0100, L503.0105, L501.6710, L506.0250 #### [facility] [address] [place], [place], [phone] Globulin (S) [Mass/Vol] 3.3 g/dL Normal 2.2-3.9 [facility] Comment on above: Order Comment: Order Date: 06/29/24 Order Info: 0-1 - PROEL Order Info: 4485-9 - COMPC3 Order Info: 4498-2 - COMPC4 Order Info: 64532-1 - CD4CD8 Order Date: 06/30/24 Order Info: 9586-9 - LYMS Performed By: #### L 3100.5475, L3100.3450, L3100.5700, L3100.5800, L3890.0100, L100.0100, L503.0105, L501.6710, L506.0250 #### [facility] [address] [place], [place], [phone] INTERPRETATION Comment Normal . [facility] Comment on above: Order Comment: Order Date: 06/29/24 Order Info: 59-11 - PROEL Order Info: 4485-9 - COMPC3 Order Info: 4498- - COMPC4 Order Info: 78147-1 - CD4CD8 Order Date: 06/30/24 Order Info: 9586-9 - LYMS Result Comment: Prot ein electrophoresis scan will follow via computer, mail, or combat systems engineer delivery. Performed By: #### L 3100.5475, L3100.3450, L3100.5700, L3100.5800, L3890.0100, L100.0100, L503.0105, L501.6710, L506.0250 #### [facility] [address] [place], [place], [address] M-SPIKE Not Observed Normal Not Observed [facility] Comment on above: Order Comment: Order Date: 06/29/24 Order Info: 0060 - PROEL Order Info: 4485-9 - COMPC3 Order Info: 4498-2 - COMPC4 Order Info: 24587-9 - CD4CD8 Order Date: 06/30/24 Order Info: 9586-9 - LYMS Performed By: #### L 3100.5475, L3100.3450, L3100.5700, L3100.5800, L3890.0100, L100.0100, L503.0105, L501.6710, L506.0250 #### [facility] [address] [place], [place], [address] NOTE: Comment Normal . [facility] Comment on above: Order Comment: Order Date: 06/29/24 Order Info: 0060-1 - PROEL Order Info: 4485-9 - COMPC3 Order Info: 4498-2 - COMPC4 Order Info: 11292-1 - CD4CD8 Order Date: 06/30/24 Order Info: 9586-9 - LYMS Result Comment: The SPE pattern appears unremarkable. Evidence of monoclonal protein is not apparent. Performed By: #### L 3100.5475, L3100.3450, L3100.5700, L3100.5800, L3890.0100, L100.0100, L503.0105, L501.6710, L506.0250 #### [facility] [address] [place], [place], [address] Protein [Mass/Vol] 7.3 g/dL Normal 6.0-8.5 [facility] Comment on above: Order Comment: Order Date: 06/29/24 Order Info: 006-1 - PROEL Order Info: 4485-9 - COMPC3 Order Info: 4498-2 - COMPC4 Order Info: 16163-3 - CD4CD8 Order Date: 06/30/24 Order Info: 9586-9 - LYMS Performed By: #### L 3100.5475, L3100.3450, L3100.5700, L3100.5800, L3890.0100, L100.0100, L503.0105, L501.6710, L506.0250 #### [facility] [address] [place], [place], [id number] CBC W/Diff, Automatedon 08-0 2-2024 Absolute Lymph 1.60 X10 3/uL Normal 0.83-4.51 [facility] Comment on above: Order Comment: Order Date: 06/29/24 Order Info: 0184-1 - CBCD Performed By: #### L 3100.5475, L3100.3450, L3100.5700, L3100.5800, L3890.0100, L100.0100, L503.0105, L501.6710, L506.0250 #### [facility] [address] [place], [address] Absolute Neut 2.6 X10 3/uL Normal 2.0-7.7 [facility] Comment on above: Order Comment: Order Date: 06/29/24 Order Info: 0184- - CBCD Performed By: #### L 3100.5475, L3100.3450, L3100.5700, L3100.5800, L3890.0100, L100.0100, L503.0105, L501.6710, L506.0250 #### [facility] [address] [place], [address] Basophils/100 WBC (Bld) 1.7 % High 0-1 [facility] Comment on above: Order Comment: Order Date: 06/29/24 Order Info: 0184- - CBCD Performed By: #### L 3100.5475, L3100.3450, L3100.5700, L3100.5800, L3890.0100, L100.0100, L503.0105, L501.6710, L506.0250 #### [facility] [address] [place], [address] Eosinophils/100 WBC (Bld) 2.3 % Normal 0-5 [facility] Comment on above: Order Comment: Order Date: 06/29/24 Order Info: 0184-1 - CBCD Performed By: #### L 3100.5475, L3100.3450, L3100.5700, L3100.5800, L3890.0100, L100.0100, L503.0105, L501.6710, L506.0250 #### [facility] [address] [place], [address] ( Erythrocyte distribution width (RBC) [Ratio] 12.8 % Normal 11.6-14.6 [facility] Comment on above: Order Comment: Order Date: 06/29/24 Order Info: 0184-1 - CBCD Performed By: #### L 3100.5475, L3100.3450, L3100.5700, L3100.5800, L3890.0100, L100.0100, L503.0105, L501.6710, L506.0250 #### [facility] [address] [place], [address] (160) Hematocrit (Bld) [Volume fraction] 42.4 % Normal 37-47 [facility] Comment on above: Order Comment: Order Date: 06/29/24 Order Info: 0184-1 - CBCD Performed By: #### L 3100.5475, L3100.3450, L3100.5700, L3100.5800, L3890.0100, L100.0100, L503.0105, L501.6710, L506.0250 #### [facility] [address] [place], [address] (813) Hemoglobin (Bld) [Mass/Vol] 13.9 g/dL Normal 12.0-15.0 [facility] Comment on above: Order Comment: Order Date: 06/29/24 Order Info: 0184-1 - CBCD Performed By: #### L 3100.5475, L3100.3450, L3100.5700, L3100.5800, L3890.0100, L100.0100, L503.0105, L501.6710, L506.0250 #### [facility] [address] [place], [address] (248) IG% 0.200 Normal 0.0-0.9 [facility] Comment on above: Order Comment: Order Date: 06/29/24 Order Info: 01802-28 - CBCD Result Comment: IG% - Immature Granulocytes (promyelocytes, myelocytes and metamyelocytes) > 1% indicates that a LEFT SHIFT is Present. Performed By: #### L 3100.5475, L3100.3450, L3100.5700, L3100.5800, L3890.0100, L100.0100, L503.0105, L501.6710, L506.0250 #### [facility] [address] [place], [address] Lymphocytes/100 WBC (Bld) 34.0 % Normal 19-41 [facility] Comment on above: Order Comment: Order Date: 06/29/24 Order Info: 01802-28 - CBCD Performed By: #### L 3100.5475, L3100.3450, L3100.5700, L3100.5800, L3890.0100, L100.0100, L503.0105, L501.6710, L506.0250 #### [facility] [address] [place], [address] MCH (RBC) [Entitic mass] 29.8 pg Normal 27.0-32.0 [facility] Comment on above: Order Comment: Order Date: 06/29/24 Order Info: 01802-28 - CBCD Performed By: #### L 3100.5475, L3100.3450, L3100.5700, L3100.5800, L3890.0100, L100.0100, L503.0105, L501.6710, L506.0250 #### [facility] [address] [place], [address] MCHC (RBC) [Mass/Vol] 32.8 g/dL Normal 32-36 [facility] Comment on above: Order Comment: Order Date: 06/29/24 Order Info: 01802-28 - CBCD Performed By: #### L 3100.5475, L3100.3450, L3100.5700, L3100.5800, L3890.0100, L100.0100, L503.0105, L501.6710, L506.0250 #### [facility] [address] [place], [address] MCV (RBC) [Entitic vol] 90.8 fL Normal 81-99 [facility] Comment on above: Order Comment: Order Date: 06/29/24 Order Info: 0184-1 - CBCD Performed By: #### L 3100.5475, L3100.3450, L3100.5700, L3100.5800, L3890.0100, L100.0100, L503.0105, L501.6710, L506.0250 #### [facility] [address] [facility] [place], [address] Monocytes/100 WBC (Bld) 7.6 % Normal 0-10 [facility] Comment on above: Order Comment: Order Date: 06/29/24 Order Info: 0184- - CBCD Performed By: #### L 3100.5475, L3100.3450, L3100.5700, L3100.5800, L3890.0100, L100.0100, L503.0105, L501.6710, L506.0250 #### [facility] [address] [place], [address] Neutrophils/100 WBC (Bld) 54.2 % Normal 47-70 [facility] Comment on above: Order Comment: Order Date: 06/29/24 Order Info: 0184-1 - CBCD Performed By: #### L 3100.5475, L3100.3450, L3100.5700, L3100.5800, L3890.0100, L100.0100, L503.0105, L501.6710, L506.0250 #### [facility] [address] [facility] [place], [address] Nucleated RBC (Bld) [#/Vol] 0 10*3/uL Normal 0-5 [facility] Comment on above: Order Comment: Order Date: 06/29/24 Order Info: 0184-1 - CBCD Performed By: #### L 3100.5475, L3100.3450, L3100.5700, L3100.5800, L3890.0100, L100.0100, L503.0105, L501.6710, L506.0250 #### [facility] [address] [place], [address] Platelet mean volume (Bld) [Entitic vol] 10.0 fL Normal 6.2-12.0 [facility] Comment on above: Order Comment: Order Date: 06/29/24 Order Info: 0184- - CBCD Performed By: #### L 3100.5475, L3100.3450, L3100.5700, L3100.5800, L3890.0100, L100.0100, L503.0105, L501.6710, L506.0250 #### [facility] [address] [place], [address] Platelets (Bld) [#/Vol] 319 10*3/uL Normal 150-450 [facility] Comment on above: Order Comment: Order Date: 06/29/24 Order Info: 0184- - CBCD Performed By: #### L 3100.5475, L3100.3450, L3100.5700, L3100.5800, L3890.0100, L100.0100, L503.0105, L501.6710, L506.0250 #### [facility] [address] [place], [address] RBC (Bld) [#/Vol] 4.67 10*6/uL Normal 4.2-5.4 [facility] Comment on above: Order Comment: Order Date: 06/29/24 Order Info: 0184-1 - CBCD Performed By: #### L 3100.5475, L3100.3450, L3100.5700, L3100.5800, L3890.0100, L100.0100, L503.0105, L501.6710, L506.0250 #### [facility] [address] [place], [address] RDW SD 41.8 fl Normal 35.1-43.9 [facility] Comment on above: Order Comment: Order Date: 06/29/24 Order Info: 0184-1 - CBCD Performed By: #### L 3100.5475, L3100.3450, L3100.5700, L3100.5800, L3890.0100, L100.0100, L503.0105, L501.6710, L506.0250 #### [facility] [address] [place], [address] WBC (Bld) [#/Vol] 4.7 10*3/uL Normal 4.4-11.0 [facility] Comment on above: Order Comment: Order Date: 06/29/24 Order Info: 0184-1 - CBCD Performed By: #### L 3100.5475, L3100.3450, L3100.5700, L3100.5800, L3890.0100, L100.0100, L503.0105, L501.6710, L506.0250 #### [facility] [address] [place], [place], [phone] (162) CRPon 07-01-2024 C-REACTIVE PROT < 2.90 Normal 0.0-3.0 [facility] Comment on above: Order Comment: Order Date: 04/28/24 Order Info: 0786-1 - CMP Order Info: 84391-6 - LIPID Order Date: 06/29/24 Order Info: 74259-6 - CRP Order Info: 2284-8 - FOLS by IFA titer N Result Comment: C-Re active Protein (CRP) provides useful information for the diagnosis, therapy and monitoring of inflammatory processes and associated diseases. For the evaluation of Relative Risk for Cardiovascular Disease, a High Sensitivity CRP (HSCRP) should be ordered. Performed By: #### L 3100.5475, L3100.3450, L3100.5700, L3100.5800, L3890.0100, L100.0100, L503.0105, L501.6710, L506.0250 #### [facility] [address] [place], [place], [address] Comprehensive Metabolic Prof ilon 07-01-2024 Albumin [Mass/Vol] 4.0 g/dL Normal 3.2-5.0 [facility] Comment on above: Order Comment: Order Date: 06/29/24 Order Info: 9 - B12 Order Date: 04/28/24 Order Info: 60878-0 - VITD25 Performed By: #### L 3100.5475, L3100.3450, L3100.5700, L3100.5800, L3890.0100, L100.0100, L503.0105, L501.6710, L506.0250 #### [facility] [address] [place], [place], [address] Albumin/Globulin [Mass ratio] 1.0 {ratio} Normal 0.9-2.4 [facility] Comment on above: Order Comment: Order Date: 06/29/24 Order Info: 9 - B12 Order Date: 04/28/24 Order Info: 91126-7 - VITD25 Performed By: #### L 3100.5475, L3100.3450, L3100.5700, L3100.5800, L3890.0100, L100.0100, L503.0105, L501.6710, L506.0250 #### [facility] [address] [place], [place], [address] ALK P 80 U/L Normal 45-117 [facility] Comment on above: Order Comment: Order Date: 06/29/24 Order Info: 2131-9 - B12 Order Date: 04/28/24 Order Info: 29552-2 - VITD25 Performed By: #### L 3100.5475, L3100.3450, L3100.5700, L3100.5800, L3890.0100, L100.0100, L503.0105, L501.6710, L506.0250 #### [facility] [address] [place], [place], [id number] ALT [Catalytic activity/Vol] 19 U/L Normal 13-56 [facility] Comment on above: Order Comment: Order Date: 06/29/24 Order Info: 2132-9 - B12 Order Date: 04/28/24 Order Info: 72893-5 - VITD25 Performed By: #### L 3100.5475, L3100.3450, L3100.5700, L3100.5800, L3890.0100, L100.0100, L503.0105, L501.6710, L506.0250 #### [facility] [address] [place], [address] AST [Catalytic activity/Vol] 22 U/L Normal 15-37 [facility] Comment on above: Order Comment: Order Date: 06/29/24 Order Info: 2132-9 - B12 Order Date: 04/28/24 Order Info: 89621-0 - VITD25 Performed By: #### L 3100.5475, L3100.3450, L3100.5700, L3100.5800, L3890.0100, L100.0100, L503.0105, L501.6710, L506.0250 #### [facility] [address] [place], [place], [phone] Bilirubin [Mass/Vol] 0.80 mg/dL Normal 0.20-1.00 [facility] Comment on above: Order Comment: Order Date: 06/29/24 Order Info: 2132-9 - B12 Order Date: 04/28/24 Order Info: 74710-8 - VITD25 Result Comment: For patients on eltrombopag therapy, use of Dimension [place] TBIL is not recommended. Performed By: #### L 3100.5475, L3100.3450, L3100.5700, L3100.5800, L3890.0100, L100.0100, L503.0105, L501.6710, L506.0250 #### [facility] [address] [place], [place], [address] BUN/CRE 27.5 RATIO High 10-20 [facility] Comment on above: Order Comment: Order Date: 06/29/24 Order Info: 2131-9 - B12 Order Date: 04/28/24 Order Info: 84079-5 - VITD25 Performed By: #### L 3100.5475, L3100.3450, L3100.5700, L3100.5800, L3890.0100, L100.0100, L503.0105, L501.6710, L506.0250 #### [facility] [address] [place], [place], [address] CA,Total 9.5 mg/dL Normal 8.5-10.1 [facility] Comment on above: Order Comment: Order Date: 06/29/24 Order Info: 2131-9 - B12 Order Date: 04/28/24 Order Info: 69811-3 - VITD25 Performed By: #### L 3100.5475, L3100.3450, L3100.5700, L3100.5800, L3890.0100, L100.0100, L503.0105, L501.6710, L506.0250 #### [facility] [address] [place], [place], [address] Chloride [Moles/Vol] 102 mmol/L Normal 98-107 [facility] Comment on above: Order Comment: Order Date: 06/29/24 Order Info: 9 - B12 Order Date: 04/28/24 Order Info: 41821-1 - VITD25 Performed By: #### L 3100.5475, L3100.3450, L3100.5700, L3100.5800, L3890.0100, L100.0100, L503.0105, L501.6710, L506.0250 #### [facility] [address] [place], [place], [address] CO2 [Moles/Vol] 25.0 mmol/L Normal 21.0-32.0 [facility] Comment on above: Order Comment: Order Date: 06/29/24 Order Info: 2131-9 - B12 Order Date: 04/28/24 Order Info: 97444-7 - VITD25 Performed By: #### L 3100.5475, L3100.3450, L3100.5700, L3100.5800, L3890.0100, L100.0100, L503.0105, L501.6710, L506.0250 #### [facility] [address] [facility] [address] [place], [place], [id number] Creatinine [Mass/Vol] 0.94 mg/dL Normal 0.55-1.02 [facility] Comment on above: Order Comment: Order Date: 06/29/24 Order Info: 2132-07 Order Date: 04/28/24 Order Info: 08519-5 - VITD25 Result Comment: The validity of the calculated GFR GFRAA in patients over 70 years has not been determined. Clinical correlation is essential. Performed By: #### L 3100.5475, L3100.3450, L3100.5700, L3100.5800, L3890.0100, L100.0100, L503.0105, L501.6710, L506.0250 #### [facility] [address] [place], [place], [address] EST GFR - AA 76 mL/min Normal >60 [facility] Comment on above: Order Comment: Order Date: 06/29/24 Order Info: 9 B12 Order Date: 04/28/24 Order Info: 01522-9 - VITD25 Result Comment: Afri can [place] GFR Calc Performed By: #### L 3100.5475, L3100.3450, L3100.5700, L3100.5800, L3890.0100, L100.0100, L503.0105, L501.6710, L506.0250 #### [facility] [address] [place], [address] GAP 8 Normal 5-15 [facility] Comment on above: Order Comment: Order Date: 06/29/24 Order Info: 213-9 - B12 Order Date: 04/28/24 Order Info: 11846-1 - VITD25 Performed By: #### L 3100.5475, L3100.3450, L3100.5700, L3100.5800, L3890.0100, L100.0100, L503.0105, L501.6710, L506.0250 #### [facility] [address] [place], [place], [id number] GFR/1.73 sq M.predicted among non-blacks MDRD (S/P/Bld) [Vol rate/Area] 63 mL/min/{1.73_m2} Normal >60 [facility] Comment on above: Order Comment: Order Date: 06/29/24 Order Info: 9 - B12 Order Date: 04/28/24 Order Info: 03825-3 - VITD25 Result Comment: Non- GFR Calc Performed By: #### L 3100.5475, L3100.3450, L3100.5700, L3100.5800, L3890.0100, L100.0100, L503.0105, L501.6710, L506.0250 #### [facility] [address] [place], [place], [address] Globulin (S) [Mass/Vol] 4.1 g/dL Normal 2.2-4.2 [facility] Comment on above: Order Comment: Order Date: 06/29/24 Order Info: 2131-9 - B12 Order Date: 04/28/24 Order Info: 03407-6 - VITD25 Performed By: #### L 3100.5475, L3100.3450, L3100.5700, L3100.5800, L3890.0100, L100.0100, L503.0105, L501.6710, L506.0250 #### [facility] [address] [place], [address] Glucose [Mass/Vol] 85 mg/dL Normal 74-106 [facility] Comment on above: Order Comment: Order Date: 06/29/24 Order Info: 2131-9 - B12 Order Date: 04/28/24 Order Info: 30779-0 - VITD25 Performed By: #### L 3100.5475, L3100.3450, L3100.5700, L3100.5800, L3890.0100, L100.0100, L503.0105, L501.6710, L506.0250 #### [facility] [address] [place], [address] Potassium [Moles/Vol] 4.2 mmol/L Normal 3.5-5.1 [facility] Comment on above: Order Comment: Order Date: 06/29/24 Order Info: 2132-07 - B12 Order Date: 04/28/24 Order Info: 93088-8 - VITD25 Performed By: #### L 3100.5475, L3100.3450, L3100.5700, L3100.5800, L3890.0100, L100.0100, L503.0105, L501.6710, L506.0250 #### [facility] [address] [place], [address] Sodium [Moles/Vol] 135 mmol/L Low 136-145 [facility] Comment on above: Order Comment: Order Date: 06/29/24 Order Info: 9 - B12 Order Date: 04/28/24 Order Info: 73357-6 - VITD25 Performed By: #### L 3100.5475, L3100.3450, L3100.5700, L3100.5800, L3890.0100, L100.0100, L503.0105, L501.6710, L506.0250 #### [facility] [address] [place], [place], [id number] T PROT 8.1 g/dL Normal 6.4-8.2 [facility] Comment on above: Order Comment: Order Date: 06/29/24 Order Info: 2131-9 - B12 Order Date: 04/28/24 Order Info: 92602-9 - VITD25 Performed By: #### L 3100.5475, L3100.3450, L3100.5700, L3100.5800, L3890.0100, L100.0100, L503.0105, L501.6710, L506.0250 #### [facility] [address] [place], [place], [id number] Urea nitrogen [Mass/Vol] 26 mg/dL High 7-18 [facility] Comment on above: Order Comment: Order Date: 06/29/24 Order Info: 9 - B12 Order Date: 04/28/24 Order Info: 46013-8 - VITD25 Performed By: #### L 3100.5475, L3100.3450, L3100.5700, L3100.5800, L3890.0100, L100.0100, L503.0105, L501.6710, L506.0250 #### [facility] [address] [place], [place], [id number] Erythrocyte Sed Rateon 07-01 SED RATE 10 mm/hr Normal 0-30 [facility] Comment on above: Order Comment: Order Date: 06/29/24 Order Info: 9 - B12 Order Date: 04/28/24 Order Info: [id number] - VITD25 Performed By: #### L 3100.5475, L3100.3450, L3100.5700, L3100.5800, L3890.0100, L100.0100, L503.0105, L501.6710, L506.0250 #### [facility] [address] [place], [place], [id number] Folates, (Folic Acid)on FOLATES 14.60 ng/mL Normal 3.1-55.4 [facility] Comment on above: Order Comment: Order Date: 04/28/24 Order Info: 0786-1 - CMP Order Info: 75093-1 - LIPID Order Date: 06/29/24 Order Info: 63113-5 - CRP Order Info: 2284-8 - FOLS by IFA titer N Performed By: #### L 3100.5475, L3100.3450, L3100.5700, L3100.5800, L3890.0100, L100.0100, L503.0105, L501.6710, L506.0250 #### [facility] [address] [place], [place], [address] L509.8000on 07-01-2024 Syphilis Abs Non-Reactive Normal [facility] Comment on above: Order Comment: Order Date: 06/29/24 Order Info: 2132-9 - B12 Order Date: 04/28/24 Order Info: 30752-8 - VITD25 Performed By: #### L 3100.5475, L3100.3450, L3100.5700, L3100.5800, L3890.0100, L100.0100, L503.0105, L501.6710, L506.0250 #### [facility] [address] [place], [place], [address] Lipid Profileon 07-01-2024 Cholesterol [Mass/Vol] 216 mg/dL High 200 [facility] Comment on above: Order Comment: Order Date: 06/29/24 Order Info: 2132-9 - B12 Order Date: 04/28/24 Order Info: 14698-9 - VITD25 Result Comment: <200 mg/dL Desirable 200-240 mg/dL Borderline >240 mg/dL High Risk Performed By: #### L 3100.5475, L3100.3450, L3100.5700, L3100.5800, L3890.0100, L100.0100, L503.0105, L501.6710, L506.0250 #### [facility] [address] [place], [address] Cholesterol in HDL [Mass/Vol] 57 mg/dL Normal [facility] Comment on above: Order Comment: Order Date: 06/29/24 Order Info: 2132-9 - B12 Order Date: 04/28/24 Order Info: [id number] - VITD25 Result Comment: The drugs N-Acetylcysteine and Metamizole may falsely depress this assay. Reference Range HDL <40 mg/dL Low HDL Cholesterol HDL >or= 60 mg/dL High HDL Cholesterol Performed By: #### L 3100.5475, L3100.3450, L3100.5700, L3100.5800, L3890.0100, L100.0100, L503.0105, L501.6710, L506.0250 #### [facility] [address] [place], [place], [address] Cholesterol in LDL [Mass/Vol] 144 mg/dL High 0-130 [facility] Comment on above: Order Comment: Order Date: 06/29/24 Order Info: 2-9 - B12 Order Date: 04/28/24 Order Info: [id number] - VITD25 Performed By: #### L 3100.5475, L3100.3450, L3100.5700, L3100.5800, L3890.0100, L100.0100, L503.0105, L501.6710, L506.0250 #### [facility] [address] [place], [address] Cholesterol in VLDL [Mass/Vol] 15 mg/dL Normal 5-40 [facility] Comment on above: Order Comment: Order Date: 06/29/24 Order Info: 2131-9 - B12 Order Date: 04/28/24 Order Info: [id number] - VITD25 Performed By: #### L 3100.5475, L3100.3450, L3100.5700, L3100.5800, L3890.0100, L100.0100, L503.0105, L501.6710, L506.0250 #### [facility] [address] [place], [place], [address] Triglyceride [Mass/Vol] 73 mg/dL Normal [facility] Comment on above: Order Comment: Order Date: 06/29/24 Order Info: 2131-9 - B12 Order Date: 04/28/24 Order Info: [id number] - VITD25 Result Comment: The drugs N-Acetylcysteine and Metamizole may falsely depress this assay. Serum Triglycerides Reference Interval Normal <150 mg/dL Borderline high 150 - 199 mg/dL High 200 - 499 mg/dL Very High > or = 500 mg/dL Performed By: #### L 3100.5475, L3100.3450, L3100.5700, L3100.5800, L3890.0100, L100.0100, L503.0105, L501.6710, L506.0250 #### [facility] [address] [facility] [place], [place], [id number] Vitamin B12on 07-01-2024 Cobalamin (Vitamin B12) [Mass/Vol] 917 pg/mL High 211-911 [facility] Comment on above: Order Comment: Order Date: 06/29/24 Order Info: 9 - B12 Order Date: 04/28/24 Order Info: [id number] - VITD25 Performed By: #### L 3100.5475, L3100.3450, L3100.5700, L3100.5800, L3890.0100, L100.0100, L503.0105, L501.6710, L506.0250 #### [facility] [address] [place], [place], [address] Vitamin D,25 Hydroxyon 07-01 Vitamin D 25-OH 60.7 ng/mL Normal [facility] Comment on above: Order Comment: Order Date: 06/29/24 Order Info: 2132-9 - B12 Order Date: 04/28/24 Order Info: [id number] - VITD25 Result Comment: Leigh min D 25(OH) Status Range Deficiency <20 ng/mL (50nmol/L) Insufficiency 20 - 30 ng/mL (50 - 75 nmol/L) Sufficiency 30 - 100 ng/mL (75 - 250 nmol/L) Toxicity >100 ng/mL (>250 nmol/L) Performed By: #### L 3100.5475, L3100.3450, L3100.5700, L3100.5800, L3890.0100, L100.0100, L503.0105, L501.6710, L506.0250 #### [facility] [address] [place], [address] Basophil percentageOrdered B y: Ruth Rangel on 02-13-2023 Bilirubin [Mass/Vol] 1.10 mg/dL 0.20-1.00 [facility] Comment on above: For patients on eltr ombopag therapy, use of Dimension [place] TBIL is not recommended. Chloride [Moles/Vol] 106 mmol/L 98-107 [facility] Glucose [Mass/Vol] 93 mg/dL 74-106 [facility] Potassium [Moles/Vol] 4.0 mmol/L 3.5-5.1 [facility] Protein [Mass/Vol] 7.9 g/dL 6.4-8.2 [facility] Sodium [Moles/Vol] 139 mmol/L 136-145 [facility] Laboratory - Chemistry and C hemistry - challengeOrdered By: Ruth Rangel on 02-13-2023 ALP [Catalytic activity/Vol] 74 U/L 45-117 [facility] ALT [Catalytic activity/Vol] 24 U/L 13-56 [facility] CO2 [Moles/Vol] 29.0 mmol/L 21.0-32.0 [facility] Globulin (S) [Mass/Vol] 3.7 g/dL 2.2-4.2 [facility] Urea nitrogen/Creatinine [Mass ratio] 21.7 mg/mg 10-20 [facility] No Panel InformationOrdered By: Ruth Rangel on 02-13-2023 Estimated GFR (MDRD) Amer 79 mL/min >60 [facility] Comment on above: GFR Calc Estimated GFR (MDRD) Non-Af Amer 65 mL/min >60 [facility] Comment on above: Non- GFR Calc Serum or plasma albumin angelic urement (mass/volume)Ordered By: Ruth Rangel on 02-13-2023 Albumin [Mass/Vol] 4.2 g/dL 3.2-5.0 [facility] Serum or plasma albumin/glob ulin mass ratioOrdered By: [facility] 02-13-2023 Albumin/Globulin [Mass ratio] 1.1 {ratio} 0.9-2.4 [facility] Serum or plasma calcium angelic urement (mass/volume)Ordered By: [facility] on 02-13-2023 Calcium [Mass/Vol] 9.6 mg/dL 8.5-10.1 [facility] Serum or plasma creatinine m easurement (mass/volume)Ordered By: Ruthgenoveva Rangel on 02-13-2023 Creatinine [Mass/Vol] 0.92 mg/dL 0.55-1.02 [facility] Comment on above: The validity of the calculated GFR & GFRAA in patients over 70 years has not been determined. Clinical correlation is essential. Serum or plasma urea nitroge n measurement (mass/volume)Ordered By: Ruth Rangel on 02-13-2023 Urea nitrogen [Mass/Vol] 20 mg/dL 7-18 [facility] Thin prep Papanicolaou smear with manual screeningOrdered By: Ruth Rangel on 02-13-2023 Thin prep Papanicolaou smear with manual screening 19 U/L 15-37 [facility] Thin prep Papanicolaou smear with manual screening 4 5-15 [facility] Culture, urineOrdered By: Dr Johny Solis on 12-20-2022 Bacteria identified Cx Nom (U) Culture exhibits no growth. [facility] Culture, urineOrdered By: Danish Montanez on 12-19-2022 Bacteria identified Cx Nom (U) Culture exhibits no growth. [facility] Basophil percentageOrdered B y: Dr. Solis on 12-18-2022 Basophil percentage 0 SEEN /hpf 0-5 [facility] Bilirubin Test strip Ql (U)O rdered By: Dr. Solis on 01-19-2023 Bilirubin Ql (U) Negative Negative [facility] Ketones Test strip Ql (U)Ord ered By: Dr. Solis on 12-18-2022 Ketones Ql (U) Negative Negative [facility] Mucus LM Ql (Urine sed)Order ed By: Dr. Solis on 12-18-2022 Mucus Ql (Urine sed) 2+ /hpf [facility] Nitrite Test strip Ql (U)Ord ered By: Dr. Solis on 12-18-2022 Nitrite Ql (U) Negative Negative [facility] Protein Test strip Ql (U)Ord ered By: Dr. Solis on 12-18-2022 Protein Ql (U) Negative Negative [facility] Squamous epithelial cells de tection in urine sediment by light microscopyOrdered By: Dr. Solis on 12-18-2022 Epithelial cells.squamous LM Ql (Urine sed) 0-5 SEEN /hpf 5-10 [facility] Urine blood detectionOrdered By: Dr. Solis on 12-18-2022 RBC Ql (U) 10 /ul Negative [facility] RBC Ql (U) 0 SEEN /hpf 0-5 [facility] Urine clarityOrdered By: Dr. Solis on 12-18-2022 Clarity (U) Clear Clear [facility] Urine color determinationOrd ered By: Dr. Solis on 12-18-2022 Color (U) Yellow Yellow [facility] Urine glucose detectionOrder ed By: Dr. Solis on 12-18-2022 Glucose Ql (U) Normal mg/dl Normal [facility] Urine leukocyte esterase det ection by dipstickOrdered By: Dr. Solis on 12-18-2022 Leukocyte esterase Test strip Ql (U) Negative Negative [facility] Urine pHOrdered By: Dr. Lobo north on 12-18-2022 pH (U) 6.0 [pH] 5.0 - 8.0 [facility] Urine sediment bacteria coun t by microscopy (number/high power field)Ordered By: Dr. Solis on 12-18-2022 Bacteria LM.HPF (Urine sed) [#/Area] 0 /[HPF] None Seen [facility] Urine specific gravity measu rementOrdered By: Dr. Solis on 12-18-2022 Specific gravity (U) [Rel density] 1.015 1.002-1.030 [facility] Urobilinogen Auto test strip Ql (U)Ordered By: Dr. Solis on 12-18-2022 Urobilinogen Ql (U) Normal mg/dl Normal [facility] Encounters Encounter Date Encounter Type Care Provider Facility Start: 08-04-2024 End: 08-04-2024 ambulatory Elmo Solis Facility:[facility] Start: 07-22-2024 End: 07-22-2024 ambulatory Elmo Solis Facility:[facility] Start: 07-01-2024 End: [facility] Start: 02-13-2023 End: 02-13-2023 ambulatory [facility] Work Phone: Start: 02-13-2023 End: 02-13-2023 Patient encounter procedure [facility] [place] [place] Start: 12-18-2022 End: 12-18-2022 ambulatory [facility] Work Phone: Start: 12-18-2022 End: 12-18-2022 [facility] Start: 12-17-2022 End: 12-17-2022 ambulatory [facility] Work Phone: Start: 12-17-2022 End: 12-17-2022 [facility] Procedures Date Procedure Procedure Detail Performing Clinician Bacteria identified in Urine by Culture Urine culture Urine culture Payers Date Payer Category Payer Self-pay 2023 Unknown [id number] 2017 Unknown ANTHEM [id number] Unknown [id number] Unknown [id number] Unknown [id number] Social History Date Type Detail Facility Start: 01-11-2017 End: 01-11-2017 Tobacco smoking status NHIS Unknown if ever smoked [facility] Start: 1955 Sex Assigned At Female [facility] Evaluation note Note Date & Type Note Facility Evaluation note No assessment information availa katty [facility] Work Phone: Chief Complaint and Reason for Visit Chief Complaint UTI Chief Complaint UTI EORDER Advance Directives No Advanced Directives Records Found Advance Directive Response Recorded Date/ Time Advance Directives No December 7:42pm Living Will No January 11, 2 017 7:42pm Power of Estate Planning Director No January 11, 2017 7:42pm Advance Directive Response Recorded Date/ Time Advance Directives No December 8:42pm Living Will No January 11, 2 017 8:42pm Power of Estate Planning Director No January 11, 2017 8:42pm Summary Purpose Family History No Family History Records Found Additional Source Comments Care Teams (unrecognized sec tion and content) Team Status: Active Member Role Status Dates Dr. Elmo Solis MD Family Provider Active Dr. Elmo Solis MD Primary Care Provider Active Team Status: Inactive Member Role Status Dates Dr. Elmo Solis MD Primary Care Provide r, Attending Provider, Referring Provider Active Team Status: Active Member Role Status Dates Dr. Elmo Solis MD Primary Care Provide r, Attending Provider, Referring Provider Active Team Status: Inactive Member Role Status Dates Dr. Elmo Solis MD Primary Care Provider Active JEFFERSON Jose Attending Provider, Referr ing Provider Active Goals (unrecognized section and content) Goals may be documented in a n alternate sectionGoals may be documented in an alternate sectionGoals may be documented in an alternate section INFORMATION SOURCE (unrecogn ized section and content) DATE CREATED AUTHOR 11/25/2024 [facility] FOR RECORDS PERTAINING TO PATIENTS WHO ARE OR HAVE BEEN ENROLLED IN A CHEMICAL DEPENDENCY/SUBSTANCEABUSE PROGRAM, SOME INFORMATION MAY BE OMITTED. This clinical summary was aggregated from multiple sources. Caution should be exercised in using it in the provision of clinical care. This summary normalizes information from multiple sources, and as a consequence, information in this document may materially change the coding, format and clinical context of patient data. In addition, data may be omitted in some cases. CLINICAL DECISIONS SHOULD BE BASED ON THE PRIMARY CLINICAL RECORDS. [facility] provides no warranty or guarantee of the accuracy or completeness of information in this document.
[2025-07-26 10:09] LABS: Hematocrit 40.5 % (37-47); Hemoglobin 13.4 g/dL (12.0-15.0); Immature Granulocytes Count 0.010 X10^3/uL (0.0-0.0); Mean Corp Hgb Conc 33.1 g/dL (32-36); Mean Corpuscular Volume 90.6 fL (81-99); Mean Platelet Vol. 9.4 fl (6.2-12.0); NRBC Flagged by Analyzer 0 % (0-5); Platelet Count 327 K/mm3 (150-450); RBC Distribution Width CV 12.2 % (11.6-14.6); RBC Distribution Width SD 40.6 fl (35.1-43.9); Red Blood Count 4.47 M/mm3 (4.2-5.4); White Blood Count 5.1 K/mm3 (4.4-11.0)
[2025-07-26 10:36] LABS: PTHIN 45 pg/mL (11-61)
[2025-07-26 12:17] LABS: AST(SGOT) 22 U/L (<=31); Alanine Aminotransfer ALT/SGPT 28 U/L (<=34); Albumin, Serum 4.3 g/dL (3.4-4.8); Alkaline Phosphatase 55 U/L (35-104); Anion Gap 13 (5-15); BUN 21 mg/dL (4-19); BUN/Creat Ratio 20.4 RATIO (10-20); Calcium,Total 9.3 mg/dL (7.6-11.0); Carbon Dioxide 23.5 mmol/L (21.0-32.0); Chloride 104 mmol/L (98-108); Cholesterol 217 mg/dL (<=200); Globulin 3.0 g/dL (2.2-4.2); Glucose 91 mg/dL (70-99); Low Density Lipoprotein Calc. 137 mg/dL; Potassium 4.4 mmol/L (3.3-5.1); Triglycerides 71 mg/dL; Very Low Density Lipoprotein 14 mg/dL (5-40); Vitamin D,25 Hydroxy 33.8 ng/mL (30-100); cholesterol:hdl ratio screen 3.31
== END | disposition home or self-care (01) ==
LOC: MTLAB 07:10
PROVIDERS: PCP Family Medicine; Referring Provider Family Medicine; Visit Provider Family Medicine
DX: Z13.220 Encounter for screening for lipoid disorders (principal); M81.0 Age-related osteoporosis without current pathological fracture; I88.9 Nonspecific lymphadenitis, unspecified
CPT/HCPCS: 36415; 80053; 80061; 82306; 83970; 85025

== ENCOUNTER → 2025-08-30 | Outpatient (CLI) | payer MEDICARE, SELFPAY ==
--- NOTE | 2025-08-30 07:18 | BI_ITS ---
EXAM: SCRN MAMM (CAD)W/ALISSON BILAT DATE: 08/30/2025 CLINICAL HISTORY: F, Age 70 y/o , SCREENING Routine screening TECHNIQUE: Procedure Code: BISMWCADBTOM Modality: MG Procedure: SCRN MAMM (CAD)W/ALISSON BILAT COMPARISON: Prior exam(s) dated 09/29/2023. FINDINGS: TISSUE DENSITY: There are scattered areas of fibroglandular density. Bilateral Breast Mammographic Findings: No significant masses, calcifications or other abnormalities are identified. No interval change BI/SCRN MAMM (CAD)W/ALISSON BILAT IMPRESSION: Stable screening mammogram, no suspicious findings OVERALL FINAL ASSESSMENT BI-RADS 1: NEGATIVE. RECOMMENDATION: Routine annual follow-up in 1 Year Additional Recommendation none A letter with findings and recommendations will be mailed to the patient. Reading Location: [id number]
--- NOTE | 2025-08-30 07:18 | BI_ITS ---
EXAM: SCRN MAMM (CAD)W/ALISSON BILAT DATE: 08/30/2025 CLINICAL HISTORY: F, Age 70 y/o , SCREENING Routine screening TECHNIQUE: Procedure Code: BISMWCADBTOM Modality: MG Procedure: SCRN MAMM (CAD)W/ALISSON BILAT COMPARISON: Prior exam(s) dated 09/29/2023. FINDINGS: TISSUE DENSITY: There are scattered areas of fibroglandular density. Bilateral Breast Mammographic Findings: No significant masses, calcifications or other abnormalities are identified. No interval change BI/SCRN MAMM (CAD)W/ALISSON BILAT IMPRESSION: Stable screening mammogram, no suspicious findings OVERALL FINAL ASSESSMENT BI-RADS 1: NEGATIVE. RECOMMENDATION: Routine annual follow-up in 1 Year Additional Recommendation none A letter with findings and recommendations will be mailed to the patient. Reading Location: [id number]
== END | disposition home or self-care (01) ==
LOC: OPBD 07:17
PROVIDERS: PCP Family Medicine; Referring Provider Family Medicine; Visit Provider Family Medicine
DX: Z12.31 Encounter for screening mammogram for malignant neoplasm of breast (principal); M81.0 Age-related osteoporosis without current pathological fracture
CPT/HCPCS: 77063; 77067

== ENCOUNTER → 2025-10-03 | Outpatient (CLI) | payer MEDICARE, SELFPAY ==
--- NOTE | 2025-10-03 07:36 | BD_ITS ---
PROCEDURE: BD/Dexa Bone Density Study
== END | disposition home or self-care (01) ==
LOC: OPBD 07:30
PROVIDERS: PCP Family Medicine; Referring Provider Family Medicine; Visit Provider Family Medicine
DX: Z78.0 Asymptomatic menopausal state (principal); M85.80 Other specified disorders of bone density and structure, unspecified site
CPT/HCPCS: 77080